=== PATIENT | female | born 1995 | race Caucasian/White ===

== ENCOUNTER → 2016-06-01 | Outpatient (CLI) | payer OTHER ==
--- NOTE | 2016-06-01 14:04 | DI ---
US RETROPERITONEUM,06/01/2016 10:01 AM: Clinical History: Abnormal ultrasound of the bladder Previous Exam: May 07, 2013 Findings: Multiple grayscale and color Doppler sonographic images are obtained through the retroperitoneum, and demonstrate a normal-appearing right kidney measured 11.2 cm in length. The left kidney is also norm al measuring 1.9 cm in length. The ureters are not well evaluated, and is impossible to say whether t here is and system. The urinary bladder is normal. Both ureteral jets were identified. Impression: 1. Normal morphologic retroperitoneal ultrasound. 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 In the absence of any renal hydronephrosis nor renal cortical atrophy, this is of questionable clinical significance. If there is a reason to determine, unequivocally, the presence or absence of duplicate ureters, a CT IVP is recommended.
== END ==
LOC: US 09:56
PROVIDERS: ATTEND Emergency Medicine
DX: R93.41 Abnormal radiologic findings on diagnostic imaging of renal pelvis, ureter, or bladder (principal)
CPT/HCPCS: 76770